=== PATIENT | female | born 2000 | race Native Hawaiian/Other Pacific Islander ===

== ENCOUNTER 2021-06-23 02:53 | Emergency (ER) | payer BC ==
[~2021-06-23] VITALS: Ht 154.9 cm; Wt 56.7 kg
[2021-06-23 02:58] VITALS: TEMP 99.4
[2021-06-23 03:34] LABS: PLATELET COUNT 163 K/uL (152-353)
[2021-06-23 03:50] LABS: POTASSIUM 4.1 mmol/L (3.6-5.2)
[2021-06-23 07:33] LABS: POTASSIUM 3.7 mmol/L (3.6-5.2)
[2021-06-23 11:50] VITALS: BP 122/74
== END 2021-06-23 11:50 | disposition still patient (30) ==
LOC: ED 02:53
PROVIDERS: Emergency Medicine
DX: E10.65 Type 1 diabetes mellitus with hyperglycemia (principal); Z79.4 Long term (current) use of insulin; L02.31 Cutaneous abscess of buttock
CPT/HCPCS: 36415; 36600; 80048; 81000; 82805; 83605; 85027; 96360; 96361; 96365; 96366; 96375; 99284; J0696; J1815; J3370

== ENCOUNTER 2021-07-29 12:25 | Inpatient (IN) | payer BC, OTHER ==
[~2021-07-29] VITALS: Ht 154.9 cm; Wt 60.9 kg
[2021-07-29 12:30] VITALS: BP 144/93; TEMP 98.1
[2021-07-29 13:30] VITALS: BP 111/66
[2021-07-29 13:48] LABS: PLATELET COUNT 395 K/uL (152-353)
[2021-07-29 13:55] LABS: POTASSIUM 4.8 mmol/L (3.6-5.2); SODIUM 134 mmol/L (136-145)
[2021-07-29 14:13] LABS: PARTIAL THROMBOPLASTIN TIME 24.9 SECONDS (24.5-33.6)
[2021-07-29 14:30] VITALS: BP 100/74
[2021-07-29 15:30] VITALS: BP 114/63
[2021-07-29 16:18] LABS: POTASSIUM 3.8 mmol/L (3.6-5.2)
[2021-07-29 16:30] VITALS: BP 107/66
[2021-07-29 21:11] VITALS: BP 131/70; TEMP 99.1; Ht 154.9 cm; Wt 60.9 kg
[2021-07-30 00:32] LABS: POTASSIUM 3.3 mmol/L (3.6-5.2)
[2021-07-30 05:05] LABS: POTASSIUM 3.7 mmol/L (3.6-5.2)
[2021-07-30 06:11] LABS: PLATELET COUNT 263 K/uL (152-353)
[2021-07-30 09:29] LABS: POTASSIUM 3.2 mmol/L (3.6-5.2)
[2021-07-30 18:52] LABS: POTASSIUM 3.2 mmol/L (3.6-5.2)
[2021-07-30 20:00] VITALS: TEMP 97.2
[2021-07-31] VITALS: TEMP 97.8
[2021-07-31 04:00] VITALS: TEMP 97.8
[2021-07-31 07:11] LABS: PLATELET COUNT 242 K/uL (152-353)
[2021-07-31 07:23] LABS: POTASSIUM 3.5 mmol/L (3.6-5.2)
[2021-07-31 20:00] VITALS: TEMP 98.9
[2021-08-01 00:01] VITALS: TEMP 98.9
[2021-08-01 03:53] VITALS: TEMP 98.8
[2021-08-01 04:15] LABS: PLATELET COUNT 232 K/uL (152-353)
[2021-08-01 04:21] LABS: POTASSIUM 3.3 mmol/L (3.6-5.2)
== END 2021-08-01 11:50 | disposition home or self-care (01) | DRG 637 ==
LOC: ED 12:25 → PCU 18:24
PROVIDERS: ADMIT Family Medicine; ATTEND Internal Medicine Endocrinology, Diabetes & Metabolism
DX: E10.10 Type 1 diabetes mellitus with ketoacidosis without coma (principal); U07.1 COVID-19; Z79.4 Long term (current) use of insulin; N76.0 Acute vaginitis; B96.20 Unspecified Escherichia coli [E. coli] as the cause of diseases classified elsewhere; B96.4 Proteus (mirabilis) (morganii) as the cause of diseases classified elsewhere
CPT/HCPCS: 36415; 36600; 80048; 80053; 80307; 81000; 81002; 81025; 82550; 82805; 83036; 83735; 84484; 85007; 85027; 85610; 85730; 87070; 87077; 87186; 87490; 87590; 87635; 93005; 94760; 96360; 96361; 96374; 96376; 99285; J1815; J1956; J2270; J2405; J3475; J3490; U0003